=== PATIENT | male | born 1995 | race American Indian/Alaskan Native ===

== ENCOUNTER 2022-07-31 17:58 | Emergency (ER) | payer OTHER ==
[2022-07-31] MEDS ORDERED: Lidocaine 1% with EPINEPHrine 1:100,000 20 ML MDV INJECT ONE (19:01)
[2022-07-31] MEDS ORDERED: Sulfamethoxazole/Trimethoprim 800-160 MG Tab PO ONE (19:30)
== END 2022-07-31 19:51 | disposition home or self-care (01) ==
LOC: DL.ED 17:58
DX: L02.811 Cutaneous abscess of head [any part, except face] (principal)
CPT/HCPCS: 10060; 10061; 99283; J3490

== ENCOUNTER 2024-06-30 19:52 | Emergency (ER) | payer OTHER ==
[2024-06-30] MEDS: Orphenadrine 60 MG/2 ML Inj IM ONE (23:11)
[2024-06-30] MEDS: Ketorolac 30 MG/ML SDV IM ONE (23:11)
[2024-06-30] MEDS: Take Home: Cyclobenzaprine 10 MG Tab, 4 Tab Pack PO ONE (23:22)
== END 2024-06-30 23:27 | disposition home or self-care (01) ==
LOC: DL.ED 19:52
DX: M54.42 Lumbago with sciatica, left side (principal); M62.830 Muscle spasm of back; I10 Essential (primary) hypertension; W01.0XXA Fall on same level from slipping, tripping and stumbling without subsequent striking against object, initial encounter; Y93.89 Activity, other specified
CPT/HCPCS: 72100; 73502; 96372; 99283; A9270; J1885; J2360; 99284